=== PATIENT | male | born 1955 | race Caucasian/White ===

== ENCOUNTER 2016-05-04 22:38 | Emergency (ER) | payer BC ==
[2016-05-04] MEDS ORDERED: SODIUM CHLORIDE 0.9% 1,000 ML IV STA (23:03)
[2016-05-04] MEDS ORDERED: KETOROLAC 30 MG/ML 1 ML VIAL IVP STA ×2 (23:04→23:40)
--- NOTE | 2016-05-04 23:07 | ED ---
Chest Pain HPI - General Chief Complaint: Chest Pain Stated Complaint: Chest Pain Time Seen by Provider: 05/04/16 22:49 Source: patient, RN notes reviewed Mode of arrival: ambulatory Limitations: no limitations - History of Present Illness Initial Comments: This is a 60-year-old male with the onset yesterday of about 8 or 9/10 left- sided chest pain. He points to his left flank states he cut it comes around from front to back today at 9-10/10 constant he states it hurts he thought might be indigestion but does not feel like previous indigestion he's had. He has no prior history of heart disease or lung disease. He does not smoke. There is a family history of heart disease he states with his mother. He's had no nausea vomiting diarrhea. No cough or phlegm production no dysuria no hematuria. He does also state he has a family history of kidney stones with a brother. The pain does not get any better or worse with movement or deep breathing. MD Complaint: chest pain, other - Related Data Home Medications Medication Instructions Recorded Confirmed Omeprazole [PriLOSEC] 20 mg PO DAILY 11/30/15 05/04/16 Artificial Tears-Hypromellose 1 drops BOTH EYES DAILY PRN 05/04/16 05/04/16 [Artificial Tear Drops] Aspirin 325 mg PO DAILY 05/04/16 05/04/16 Multivitamins, Thera [Multivitamin] 1 tab PO DAILY 05/04/16 05/04/16 Suvorexant [Belsomra] 10 mg PO DAILY@1900 05/04/16 05/04/16 Previous Rx's Medication Instructions Recorded Dicyclomine HCl [Bentyl] 20 mg PO QID #10 tab 05/05/16 Hydrocodone/Acetaminophen [[place] 1 each PO Q6HR PRN #20 tab 05/05/16 5-325] Allergies Allergy/AdvReac Type Severity Reaction Status Date / Time amoxicillin Allergy Diarrhea, Verified 05/04/16 23:17 RECTAL BLEEDING Review of Systems ROS Statement: Those systems with pertinent positive or pertinent negative responses have been documented in the HPI. ROS Other: All systems not noted in ROS Statement are negative. EKG Findings - EKG Results: EKG: interpreted by TRICIA, sinus rhythm (Sinus bradycardia with a rate of 59 appear of 01 78 QRS duration 66 QT/QTC of 400/396 no acute changes are seen) Past Medical History Past Medical History: Cancer, GERD/Reflux, Hyperlipidemia Additional Past Medical History / Comment(s): PROSTATE CANCER, BLOOD IN STOOL History of Any Multi-Drug Resistant Organisms: None Reported Past Surgical History: Prostate Surgery, Tonsillectomy Additional Past Surgical History / Comment(s): BILATERAL CATARACT SURGERY, LEFT EYE SURGERY,LEFT ELBOW SIURGERY Past Anesthesia/Blood Transfusion Reactions: No Reported Reaction Past Psychological History: No Psychological Hx Reported Smoking Status: Never smoker Past Alcohol Use History: Occasional Additional Past Alcohol Use History / Comment(s): STARTED AT AGE AG 14 QUIT AT AGE 18 SMOKED 1/2 PPD Past Drug Use History: None Reported - Past Family History Mother Family Medical History: Cancer Additional Family Medical History / Comment(s): UTERINE CANCER General Exam - General Exam Comments Initial Comments: This is a well-developed well-nourished awake alert oriented 3 male Limitations: no limitations General appearance: alert, in no apparent distress Head exam: Present: atraumatic, normocephalic, normal inspection Eye exam: Present: normal appearance, PERRL, EOMI. Absent: scleral icterus, conjunctival injection, periorbital swelling ENT exam: Present: normal exam, mucous membranes moist Neck exam: Present: normal inspection. Absent: tenderness, meningismus, lymphadenopathy Respiratory exam: Present: normal lung sounds bilaterally. Absent: respiratory distress, wheezes, rales, rhonchi, stridor Cardiovascular Exam: Present: regular rate, normal rhythm, normal heart sounds. Absent: systolic murmur, diastolic murmur, rubs, gallop, clicks GI/Abdominal exam: Present: soft, normal bowel sounds. Absent: distended, tenderness, guarding, rebound, rigid Extremities exam: Present: normal inspection, full ROM, normal capillary refill. Absent: tenderness, pedal edema, joint swelling, calf tenderness Back exam: Present: normal inspection Neurological exam: Present: alert, oriented X3, CN II-XII intact Psychiatric exam: Present: normal affect, normal mood Skin exam: Present: warm, dry, intact, normal color. Absent: rash Course Vital Signs 05/04/16 05/04/16 05/05/16 22:40 23:46 00:22 Temperature 98.2 F Pulse Rate 62 61 57 L Respiratory 18 18 20 Rate Blood Pressure 176/79 160/88 160/88 O2 Sat by Pulse 97 98 96 Oximetry 05/05/16 02:29 Temperature 98 F Pulse Rate 60 Respiratory 18 Rate Blood Pressure 145/85 O2 Sat by Pulse 97 Oximetry Chest Pain MDM - MDM I did review the imaging studies and report no acute findings are seen. The presentation appears be consistent with spastic colon will be discharged on appropriate medication is a follow-up with his doctor return when necessary his abdomen currently soft and nontender. Disposition Clinical Impression: Spastic colon Disposition: HOME SELF-CARE Condition: Good Instructions: Irritable Bowel Syndrome (ED) Prescriptions: Dicyclomine HCl [Bentyl] 20 mg PO QID #10 tab Hydrocodone/Acetaminophen [[place] 5-325] 1 each PO Q6HR PRN #20 tab PRN Reason: Pain
[2016-05-04 23:20] LABS: Basophils % (A) 1 %; CH 29.7; CHCM 34.3; Eosinophils # (A) 0.2 k/uL (0-0.7); Eosinophils % (A) 3 %; HCT 45.4 % (39.0-53.0); HDW 2.55; Luc # (Auto) 0.16; Luc % (Auto) 3; Lymphocytes % (A) 38 %; MCH 28.7 pg (25.0-35.0); MCHC 33.1 g/dL (31.0-37.0); MCV 86.8 fL (80.0-100.0); Mean Platelet Volume 6.8; Monocytes # (A) 0.3 k/uL (0-1.0); Monocytes % (A) 6 %; Neutrophils # (A) 2.6 k/uL (1.3-7.7); Neutrophils % (A) 50 %; RBC 5.23 m/uL (4.30-5.90); RDW 13.1 % (11.5-15.5); WBC 5.3 k/uL (3.8-10.6)
[2016-05-04 23:32] LABS: ALT 37 U/L (21-72); AST 21 U/L (17-59); Alkaline Phosphatase 47 U/L (38-126); Amylase 60 U/L (30-110); Anion Gap 9 mmol/L; Blood Urea Nitrogen 22 mg/dL (9-20); Calcium 8.7 mg/dL (8.4-10.2); Carbon Dioxide 28 mmol/L (22-30); Chloride 104 mmol/L (98-107); Glucose 105 mg/dL (74-99); Magnesium 2.2 mg/dL (1.6-2.3); Non-African American GFR(MDRD) 56 (>60 ml/min/1.73 sqM); Potassium 4.1 mmol/L (3.5-5.1); Sodium 141 mmol/L (137-145); Total Bilirubin 0.7 mg/dL (0.2-1.3)
[2016-05-04 23:33] LABS: Creatine Kinase 65 U/L (55-170); Partial Thromboplastin Time 24.7 sec (22.0-30.0); Prothrombin Time 10.5 sec (9.0-12.0)
[2016-05-04 23:44] LABS: Appearance,Urine Clear (Clear); Bilirubin,Urine Negative (Negative); Glucose,Urine (UA) Negative (Negative); Ketones,Urine Negative (Negative); Leukocyte Esterase,Urine Negative (Negative); Nitrite,Urine Negative (Negative); Protein,Urine Negative (Negative); Specific Gravity,Urine 1.021 (1.001-1.035); UA Billing (MACRO vs. MICRO) CHEM; Urobilinogen,Urine <2.0 mg/dL (<2.0)
[2016-05-04 23:47] LABS: Creatine Kinase MB 0.6 ng/mL (0.0-2.4); Troponin I <0.012 ng/mL (0.000-0.034)
--- NOTE | 2016-05-05 00:04 | XR ---
EXAMINATION TYPE: XR chest 2V DATE OF EXAM: 05/04/2016 11:28 PM COMPARISON: None. HISTORY: Chest pain TECHNIQUE: Frontal and lateral views of the chest are obtained. FINDINGS: There is no focal air space opacity, pleural effusion, or pneumothorax seen. The cardiac silhouette size is within normal limits. The osseous structures are intact. IMPRESSION: No acute cardiopulmonary process.
[2016-05-05] MEDS ORDERED: ACETAMINOPHEN IV (For NPO) 1,000 MG in SALINE 1 100ML.BAG IVPB STA (00:16)
--- NOTE | 2016-05-05 01:57 | CT ---
EXAMINATION TYPE: CT abdomen pelvis wo con DATE OF EXAM: 05/05/2016 1:03 AM COMPARISON: 10/09/2013 HISTORY: left sided chest and flank pain, renal stone protocol CT DLP: 624.60 mGycm Automated exposure control for dose reduction was used. TECHNIQUE: Helical acquisition of images was performed from the lung bases through the pelvis. FINDINGS: LUNG BASES: Mild scarring and atelectasis is noted in both lung bases. LIVER/GB: No significant abnormality is appreciated. PANCREAS: No significant abnormality is seen. SPLEEN: No significant abnormality is seen. ADRENALS: No significant abnormality is seen. KIDNEYS: Benign-appearing cyst is noted in the right kidney. No hydronephrosis or obstructing stones are noted in the right kidney. Benign-appearing cyst is noted in the left kidney. No definite obstructing opaque stones are noted in the left kidney and left ureter. No hydronephrosis is noted on the left side. RETROPERITONEAL ADENOPATHY: None visualized REPRODUCTIVE ORGANS: No significant abnormality is seen URINARY BLADDER: No significant abnormality is seen. PELVIC ADENOPATHY: None visualized. OSSEOUS STRUCTURES: No significant abnormality is seen. BOWEL: Mild to moderate colonic diverticulosis is noted. Small hiatal hernia is noted. Visualized ap pendix area showed no significant inflammation. OTHER: IMPRESSION: 1. BILATERAL RENAL CYSTS. NO OBSTRUCTING STONES OR HYDRONEPHROSIS OR HYDROURETER IS NOTED BILATERALLY . 2. MILD TO MODERATE COLONIC DIVERTICULOSIS WITHOUT ACUTE DIVERTICULITIS. 3. VISUALIZED APPENDIX AREA SHOWED NO SIGNIFICANT INFLAMMATION. 4. SMALL HIATAL HERNIA.
[2016-05-05 02:30] VITALS: BP 145/85; PULSE 60; RESP 18; TEMP 98
== END 2016-05-05 02:54 | disposition home or self-care (01) ==
LOC: EC 22:38
DX: K58.9 Irritable bowel syndrome, unspecified (principal); R07.9 Chest pain, unspecified; K21.9 Gastro-esophageal reflux disease without esophagitis; E78.5 Hyperlipidemia, unspecified; Z87.891 Personal history of nicotine dependence; Z79.82 Long term (current) use of aspirin; Z85.46 Personal history of malignant neoplasm of prostate; Z79.899 Other long term (current) drug therapy; Z88.0 Allergy status to penicillin
CPT/HCPCS: 96375 ×2; 96365 ×2; 99285 ×2; 96361 ×2; 36415; 93005; 85379; 83880; 80053; 82150; 82550; 82553; 83690; 83735; 84484; 85025; 85610; 85730; 81003; 71020; 74176; J1885; J0131

== ENCOUNTER → 2017-03-23 | Outpatient (CLI) | payer BC ==
[2017-03-23 08:51] LABS: Appearance,Urine Clear (Clear); Bilirubin,Urine Negative (Negative); Blood,Urine Negative (Negative); Color,Urine Light Yellow; Glucose,Urine (UA) Negative (Negative); Ketones,Urine Negative (Negative); Leukocyte Esterase,Urine Negative (Negative); Nitrite,Urine Negative (Negative); PH, Urine 6.5 (5.0-8.0); Protein,Urine Negative (Negative); Specific Gravity,Urine 1.004 (1.001-1.035); Urobilinogen,Urine <2.0 mg/dL (<2.0)
[2017-03-23 08:52] LABS: HCT 46.6 % (39.0-53.0); HGB 15.5 gm/dL (13.0-17.5); MCH 29.6 pg (25.0-35.0); MCHC 33.4 g/dL (31.0-37.0); MCV 88.6 fL (80.0-100.0); Mean Platelet Volume 7.1; Platelet Count 204 k/uL (150-450); RBC 5.26 m/uL (4.30-5.90); RDW 12.5 % (11.5-15.5); WBC 5.7 k/uL (3.8-10.6)
[2017-03-23 09:37] LABS: Anion Gap 11 mmol/L; Blood Urea Nitrogen 17 mg/dL (9-20); Calcium 9.4 mg/dL (8.4-10.2); Carbon Dioxide 30 mmol/L (22-30); Chloride 101 mmol/L (98-107); Glucose 96 mg/dL (74-99); Potassium 4.4 mmol/L (3.5-5.1); Sodium 142 mmol/L (137-145)
== END | disposition home or self-care (01) ==
LOC: LABPAT 08:01
PROVIDERS: ATTEND Urology
DX: Z01.818 Encounter for other preprocedural examination (principal); N52.31 Erectile dysfunction following radical prostatectomy; R35.0 Frequency of micturition; R10.9 Unspecified abdominal pain
CPT/HCPCS: 36415; 80048; 81003; 85027; 87086

== ENCOUNTER → 2017-09-06 | Outpatient (CLI) | payer BC | END | disposition home or self-care (01) | LOC: LABWHC1 14:08 | PROVIDERS: ATTEND Family Medicine | DX: I83.813 Varicose veins of bilateral lower extremities with pain (principal); I82.402 Acute embolism and thrombosis of unspecified deep veins of left lower extremity; R79.1 Abnormal coagulation profile | CPT/HCPCS: 36415; 85379 ==

== ENCOUNTER → 2018-10-29 | Outpatient (CLI) | payer BC ==
--- NOTE | 2018-10-29 10:57 | MR ---
EXAMINATION TYPE: MR knee RT wo con DATE OF EXAM: 10/29/2018 COMPARISON: Outside x-ray dated 10/17/2018 HISTORY: Pain in right knee TECHNIQUE: Multiplanar, multisequence imaging of the right knee is performed without IV contrast. FINDINGS: No marrow edema or contusion. No evidence of acute fracture. Trace amount of fluid in the suprapatellar bursa. There is mild inflammation within the suprapatellar bursa correlate for fat pad impingement syndrome. Quadriceps and patellar tendons intact. Anterior cruciate and posterior cruciate ligaments have a normal appearance. Medial collateral and la teral collateral ligaments have a normal appearance. There is a focal area of chondral defect involving the lateral femoral articular cartilage measuring 4.6 x 11 mm. No definite free fragment. There is intrasubstance signal involving the posterior horn of the medial and lateral meniscus. This is suggestive of myxoid degeneration. No sizable joint effusion. No erosive changes. There is a 7 x 4 x 10 mm popliteal fossa cyst. IMPRESSION: 1. There is a 4.6 x 11 mm focal area of grade III chondromalacia involving the lateral femoral articu lar surface. 2. Intrasubstance signal within the posterior horn of the medial and lateral meniscus is most typical of myxoid degeneration. Subtle linear tear not excluded. 3. Inflammation within the suprapatellar bursa. Correlate for fat pad impingement syndrome
== END | disposition home or self-care (01) ==
LOC: RADMRIMAIN 09:01
PROVIDERS: ATTEND Orthopaedic Surgery
DX: M94.261 Chondromalacia, right knee (principal); M23.321 Other meniscus derangements, posterior horn of medial meniscus, right knee; M23.351 Other meniscus derangements, posterior horn of lateral meniscus, right knee

== ENCOUNTER → 2021-05-17 | Outpatient (CLI) | payer BC, MEDICARE ==
--- NOTE | 2021-05-17 09:30 | P.CON ---
Consult Note - . Consult date: 05/17/21 Assessment/Plan:: HISTORY OF PRESENT ILLNESS: 65 -year-old male as a referral from Dr. Martínez and presents today with lower back pain due to disc bulges, spinal stenosis, facet arthropathy and neuroforaminal stenoses of the left L3, right L4 and right L5 on and off for the last 35 years. Patient states back pain is 4 out of 10 intensity and escalates as high as 10 out of 10 intensity by evening. It is provoked with bending and lifting. Pain is relieved with [place] [address] Squires, ice, heat, physical therapy on and off for several years, daily home exercise regimen, massage and rest. PMH: Hypertension, GERD, OA PSH: Prostatectomy status post prostate cancer, cataract surgery, vitrectomy, tonsillectomy SH: History of tobacco use, occasional EtOH use, no illicit drug use. Read. FH: Diabetes mellitus type 2 All: Amoxacillin Meds: See list REVIEW OF ORGAN SYSTEMS: CONSTITUTIONAL: No fevers or chills. No recent weight loss. HEENT: No visual acuity loss, eye pain, difficulties with hearing. No nosebleeds. No difficulty swallowing. RESPIRATORY: Denies any troubles with breathing or dyspnea on exertion. CARDIOVASCULAR: Denies any chest pain, palpitations, or recent heart attacks. GASTROINTESTINAL: Denies fatty food intolerance. Has change in bowel habits and gas bloat. GENITOURINARY: Denies any blood in urine. Has increased urinary frequency. NEUROLOGICAL: + numbness and tingling along the distal extremities. No seizure disorders or headaches. MUSCULOSKELETAL: + back pain SKIN: No skin cancer. No rash. PSYCHIATRIC: Denies current depression or suicidal thoughts. ENDOCRINE: Denies current thyroid disorders. Denies any blood sugar glucose intolerance. HEME/LYMPHATIC: Denies any lumps and bumps around the neck. History of deep venous thrombosis. ALLERGY/IMMUNOLOGY: No immunoglobulin therapy. No immune deficiencies. BREAST: Denies current breast lumps, pain or nipple discharge. Physical Examinations : Constitutional : Cooperative , not in acute distress . HEENT: Neck supple. No Lymphadenopathy. Normal thyroid size . Eyes no ptosis , no icterus, no photophobia . Hearing intact. Normal oropharynx. No Thrush. Respiratory : Chest clear to auscultations bilaterally. No wheezing. No rhonchi. Cardiovascular : Regular rate and rhythm , S1 / S2. No S3 . No S4. Gastrointestinal : Abdomen soft. No tenderness. Bowel sounds x 4. No organomegaly . Genitourinary : Deferred. Neurologic : Cranial nerve II to XII intact. No focal neurological deficits. Psychiatric : alert & oriented x 3. Matching mood & appropriate affect. Judgment & insight intact. Lymphatic No Lymphadenopathy. Musculoskeletal : Cervical Spine Motor strength in the deltoid and biceps: Normal right side. Normal Left side Motor strength biceps and the wrist extensors: Normal right side . Normal left side Motor strength in the triceps muscle: Normal right side. Normal left side Deep tendon reflexes: Normal at the biceps. Normal at Brachioradialis. Normal at triceps Cervical facet loading test: positive bilaterally Spurling test: positive bilaterally Neck distraction test: positive bilaterally Gurmeet sign: positive bilaterally Lumbar spine Motor strength lower extremities ,thigh and legs 5/5 Right side , 5/5 Left side Deep tendon reflexes : Normal Knee Jerk. Normal Ankle Jerk Vertebral body tenderness over Lumbar facet Loading Test: positive Right / positive Left over L4-L5 and L5-S1 accompanying muscle spasms Range of motion of the lumbar spine Flexion 30 degrees, extension 10 degrees Straight Leg Raise test: Left/ Right positive at degree Loyda test: positive right / positive left. Severe tenderness over the Sacroiliac joint on the Right / Left sides Gaenslen test: positive bilaterally Seated flexion test: positive bilaterally. Imaging: MRI of the lumbar spine from 04/05/21 reviewed Assessment/ Plan : Recommendation of bilateral RFA of the L3 to L5. Patient admits to a series of facet blocks of the medial branches in the past at [facility]. Documentation received. Risks, benefits of procedure discussed and patient verbalized understanding. Denies aspirin or anti- coagulant use. Denies history of diabetes. All questions answered. I have spent greater than 50 minutes on patient care today. Dr Butler was available by phone for the evaluation of this patient. The time was used to review the medical records including relevant urine studies and Prescription hi story (MAPs), review of the available imaging, evaluation and examination of the patient, coordination of care with the medical staff and if applicable referring physicians, as well as creation of the medical record PQRS Measure Charge Sheet PQRS Narrative: Smoking Status Former smoker Pain Intensity [Lower Back] 5 Scale Used Numeric (1 - 10) Hx Alcohol Use (MH) Yes: Very rare Home Medications: Ambulatory Orders No Known Home Medications 03/17/17
[2021-05-17 10:10] VITALS: BP 151/82; PULSE 81; RESP 18; TEMP 98.1
== END ==
LOC: PNWHC3 08:20
PROVIDERS: ATTEND Physician Assistant Medical
DX: M47.816 Spondylosis without myelopathy or radiculopathy, lumbar region (principal); I10 Essential (primary) hypertension; M19.90 Unspecified osteoarthritis, unspecified site; Z87.891 Personal history of nicotine dependence; Z88.1 Allergy status to other antibiotic agents
CPT/HCPCS: 99211

== ENCOUNTER → 2021-07-05 | Outpatient (CLI) | payer MEDICARE ==
[2021-07-05 08:18] VITALS: BP 134/72; PULSE 73; RESP 18; TEMP 98.2
--- NOTE | 2021-07-05 08:24 | P.PN ---
Subjective Progress Note Date: 07/05/21 Principal diagnosis: A 65 yr old male with a history of severe and chronic low back pain secondary to lumbar degenerative disc diseases and lumbar spondylosis with facet arthropathy presents today for evaluation status post bilateral RFA of L4-L5, L5-S1. Patient states he experienced 60% pain relief status post procedure. States the last time he had lumbar RFA, he experienced pain relief for 3 years. Pain level is currently at 3 out of 10 in intensity, constant, achy in the lower aspects of his lumbar spine with radiation of pain down the left lower extremity. Pain escalates as high as 5 out of 10 in intensity with standing or walking for periods of 20 minutes or more. Pain is alleviated with lidocaine patches which provided no relief, injections, heat, physical therapy in the past, chiropractic treatments in the past but was told by his chiropractor not to continue, home-based stretching regimen and rest. Patient does not take medications due to stage III CKD. Interventional pain procedures completed include BL L4-L5, L5-S1 x 3. Patient is currently on DENIES Patient denies any side effects of the medication(s), denies excessive drowsiness or sleepiness, denies suicidal ideation and reports that the current pain medication is helping to control the pain and improve activities of daily living. Patient denies any motor or sensory deficits. Patient denies any fever or night sweats, denies any change in the bowel movements or urination. Physical Examination: -Constitutional: Cooperative. Not in acute distress . -HEENT: Neck is supple. No lymphadenopathy. No thyromegaly. Normal thyroid size. Eyes: No ptosis , no icterus, no photophobia. ENT: No auditory deficits. Normal oropharynx. No Thrush. - Respiratory: Chest clear to auscultations bilaterally. No wheezing. No rhonchi. - Cardiovascular: Regular rate and rhythm. S1 / S2 , no S3 , no S4. - Gastrointestinal: Abdomen soft no tenderness. Bowel sounds positive in all four quadrants. No organomegaly. - Genitourinary: Deferred. - Neurologic: Cranial nerve II to XII intact. No focal neurological deficits. - Psychatric: Alert & oriented x 3. Matching mood & appropriate affect. Judgment and insight intact. - Lymphatic: No Lymphadenopathy. - Musculoskeletal: Cervical spine: Muscle bulk/ tone/ strength in the bilateral upper extremities normal. Facet loading test cervical area positive. Lumbar spine: Motor bulk/ tone/ strength lower extremities , thigh and legs : 5/5 Deep tendon reflexes : Normal Knee Jerk. Normal Ankle Jerk . Vertebral body tenderness to palpation over L4 Lumbar Facet Loading Test positive Straight Leg Raise: positive at 30 degrees right side/ left side Gaenslen's Test positive Sacral spine : Severe tenderness over the Sacroiliac joint: right side / left side Range of motion: Flexion of the lumbar spine <60 degrees Range of motion: Extension of the lumbar spine <20 degrees Gaenslen's Test positive Loyda test: positive right side / left side Assessment and plan: Chronic low back pain secondary to lumbar degenerative disc disease , lumbar spondylosis with facet arthropathy without myelopathy Recommendation of PT 3x/ week x 3-4 weeks, integrated with massage. Pt obtained sufficient pain relief s/p procedure and may return to our clinic on an as-needed basis. All patient questions answered MAPS reviewed and it was appropriate. I have spent 31 minutes on patient care today. Dr Butler was available by phone for the evaluation of this patient. The time was used to review the medical records including relevant urine studies and Prescription history (MAPs), review of the available imaging, evaluation and examination of the patient, coordination of care with the medical staff and if applicable referring physicians, as well as creation of the medical record Objective - Vital Signs Vital signs: Vital Signs Temp 98.2 F 07/05/21 08:11 Pulse 73 07/05/21 08:11 Resp 18 07/05/21 08:11 BP 134/72 07/05/21 08:11 Pulse Ox 96 07/05/21 08:11 Intake & Output 07/04/21 07/05/21 07/05/21 18:59 06:59 18:59 Weight 88.451 kg PQRS Measure Charge Sheet Mode of Arrival: Ambulatory - Pain Location Lower Back Non-Pharmacological Interventions: Chiropractic Treatment, Heat, Home Exercise, Physical Therapy, Stretching Pharmacological Interventions: Block, Topical Medication PQRS Narrative: Smoking Status Former smoker Blood Pressure 134/72 Pain Intensity [Lower Back] 3 Scale Used Numeric (1 - 10) Hx Alcohol Use (MH) Yes: Very rare Home Medications: Ambulatory Orders Multivitamins, Thera [Multivitamin (formulary)] 1 tab PO DAILY 06/16/21
== END ==
LOC: PNWHC3 07:54
PROVIDERS: ATTEND Specialist
DX: M47.816 Spondylosis without myelopathy or radiculopathy, lumbar region (principal); M51.36 Other intervertebral disc degeneration, lumbar region; N18.30 Chronic kidney disease, stage 3 unspecified; G89.29 Other chronic pain; Z88.1 Allergy status to other antibiotic agents; Z87.891 Personal history of nicotine dependence
CPT/HCPCS: 99211

== ENCOUNTER → 2022-01-28 | Outpatient (CLI) | payer MEDICARE ==
--- NOTE | 2022-01-28 13:09 | FL ---
EXAMINATION TYPE: FL barium swallow w video DATE OF EXAM: 01/28/2022 COMPARISON: NONE HISTORY: Wakes up choking TECHNIQUE: Fluoroscopy. FINDINGS: Fluoroscopic guidance was provided for the procedure performed in conjunction with the hospital [facility] pathology department. Please see complete report forthcoming from the Speech Pathology departmen t. Various consistencies from thin liquid to solids were administered. Fluoroscopy time 39 seconds. Number of images: 0. No aspiration or penetration was evident. No significant pooling was observed in the vallecula. There was normal propulsion of the bolus. Minimal posterior impression on the proximal cervical esophagus anterior to the fusion was present IMPRESSION: 1. Normal modified barium swallow
== END | disposition home or self-care (01) ==
LOC: RADFLMAIN 10:49
PROVIDERS: ATTEND Family Medicine
DX: R13.10 Dysphagia, unspecified (principal); R09.89 Other specified symptoms and signs involving the circulatory and respiratory systems
CPT/HCPCS: 74230

== ENCOUNTER → 2022-02-09 | Outpatient (CLI) | payer MEDICARE ==
--- NOTE | 2022-02-09 11:51 | FL ---
ESOPHOGRAM. HISTORY: Dysphagia Esophagram was performed per the air contrast technique. The patient swallowed barium and effervesce nt crystals without difficulty or delay. Esophageal peristalsis and motility appear to be within normal limits. There is no evidence for filling defect, mass or diverticulum. Small reducible hiatal hernia is noted. Subsequently single contrast cervical esophagram was performed which fails demonstrate evidence for a spiration penetration or mass. IMPRESSION: Small reducible hiatal hernia is noted.
== END | disposition home or self-care (01) ==
LOC: RADUSWWP 09:40
PROVIDERS: ATTEND Family Medicine
DX: K44.9 Diaphragmatic hernia without obstruction or gangrene (principal); R13.10 Dysphagia, unspecified
CPT/HCPCS: 74220

== ENCOUNTER → 2022-09-02 | Outpatient (CLI) | payer MEDICARE ==
--- NOTE | 2022-09-02 10:06 | US ---
EXAMINATION TYPE: US venous doppler duplex LE LT DATE OF EXAM: 09/02/2022 9:51 AM COMPARISON: NONE CLINICAL INDICATION: Male, 67 years old with history of I80.9 PHLEBITIS AND THROMBOPHLEBITIS OF UNSPE CIFIED; Hip replacement x 10 days ago. On baby aspirin. Foot bruising. Patient states swelling has gone down a lot. SIDE PERFORMED: Left TECHNIQUE: The lower extremity deep venous system is examined utilizing real time linear array sonog marisela with graded compression, doppler sonography and color-flow sonography. VESSELS IMAGED: Common Femoral Vein Deep Femoral Vein Greater Saphenous Vein * Femoral Vein Popliteal Vein Small Saphenous Vein * Proximal Calf Veins (* superficial vessels) Left Leg: Negative for DVT IMPRESSION: 1. Left lower chart ultrasound negative for deep venous thrombosis.
== END | disposition home or self-care (01) ==
LOC: RADUSWWP 09:21
PROVIDERS: ATTEND Orthopaedic Surgery
DX: I80.9 Phlebitis and thrombophlebitis of unspecified site (principal)

== ENCOUNTER → 2022-09-27 | Outpatient (CLI) | payer MEDICARE ==
--- NOTE | 2022-09-27 14:57 | NM ---
EXAMINATION TYPE: NM bone scan whole body DATE OF EXAM: 09/27/2022 2:16 PM CLINICAL INDICATION:Male, 67 years old with history of M16.12 UNILATERAL PRIMARY OSTEOARTHRITIS, LEFT HIP; COMPARISON: 02/24/2021 lumbar spine radiograph TECHNIQUE: Intravenous administration 23.4 mCi Tc 99m MDP followed by multiple scintigraphic images o f the appendicular and axial skeleton. Small [id number] planar chest abdomen pelvis views were als o obtained Images acquired 3 hours post injection. FINDINGS: No abnormal uptake is identified within the appendicular or axial skeleton to suggest metastatic dise ase. There is increased uptake within the left hip around the acetabulum and proximal femur. There is rela tively slight sparing of the left femoral neck. Uptake in the intertrochanteric region extending into the diaphysis is present. Small focus of uptake within the right knee also present. Additional degen eration uptake including bilateral shoulder, sternoclavicular, and sacroiliac joints consistent with degenerative changes. No other photopenic areas or areas of increased activity are identified. Physiologic radiotracer activity is demonstrated in the kidneys and bladder. IMPRESSION: 1. Abnormal uptake within the left proximal femur and left acetabulum. Findings suggestive of osteoa rthrosis consider further evaluation with left hip plain film and at that time consideration for MRI. 2. Nothing to suggest metastatic disease.
== END | disposition home or self-care (01) ==
LOC: RADNMMAIN 10:02
PROVIDERS: ATTEND Family Medicine
DX: M16.12 Unilateral primary osteoarthritis, left hip (principal); R93.7 Abnormal findings on diagnostic imaging of other parts of musculoskeletal system
CPT/HCPCS: 78306; A9503

== ENCOUNTER → 2024-01-08 | Outpatient (CLI) | payer MEDICARE ==
[2024-01-08 08:24] VITALS: BP 147/79; PULSE 69; RESP 16
--- NOTE | 2024-01-08 09:33 | XR ---
EXAMINATION TYPE: XR lumbar spine 3V DATE OF EXAM: 01/08/2024 Comparison: None Clinical History: 68-year-old male M54.16 radiculopathy Findings: 5 lumbar type vertebral bodies. Bulky anterior endplate spondylosis, bridging at L4-L5 and partially bridging T12-L1, L1-L2, L2-L3. Mild multilevel degenerative disc disease. Facet arthropathy mid to lo wer lumbar spine. Vertebral body heights are preserved and alignment is maintained. Partially visuali zed left hip arthroplasty. Impression: 1. Mild multilevel degenerative disc disease but with bulky anterior endplate spondylosis, bridging o r partially bridging at some levels. 2. Hypertrophic facet arthropathy mid to lower lumbar spine. 3. No vertebral compression collapse or malalignment. [facility], , 01/08/2024 9:30 AM
--- NOTE | 2024-01-08 10:24 | P.PAINPG ---
PQRS Measure Charge Sheet Comment: A 68 yr old male with a history of severe and chronic LBP secondary to radiculopathy, spondylosis and facet arthropathy without myelopathy presents today for evaluation. Pt underwent a BL RFA L4-L5/ L5-S1 in Jun 2021 and experienced 90% pain relief x 2.5 yrs s/p procedure. Pain level is currently at 7 /10 in intensity, constant, predominantly axial, sharp in the lower aspects of his lumbar spine without radiation of pain. Pain is exacerbated with standing or walking for periods > 20 minutes or PT which has provoked pain. Pain is alleviated with physician guided home stretching program daily since Jun 2021, medications, topical , injections, heat, repositioning and rest. Interventional pain procedures completed include BL RFA L4-L5 (Jun 2021), L5-S1 x 3. Patient is currently on Lidoderm Patient denies any side effects of the medication(s), denies excessive drowsiness or sleepiness, denies suicidal ideation and reports that the current pain medication is helping to control the pain and improve activities of daily living. Patient denies any motor or sensory deficits. Patient denies any fever or night sweats, denies any change in the bowel movements or urination. Physical Examination: -Constitutional: Cooperative. Not in acute distress . -HEENT: Neck is supple. No lymphadenopathy. No thyromegaly. Normal thyroid size. Eyes: No ptosis , no icterus, no photophobia. ENT: No auditory deficits. Normal oropharynx. No Thrush. - Respiratory: Chest clear to auscultations bilaterally. No wheezing. No rhonchi. - Cardiovascular: Regular rate and rhythm. S1 / S2 , no S3 , no S4. - Gastrointestinal: Abdomen soft no tenderness. Bowel sounds positive in all four quadrants. No organomegaly. - Genitourinary: Deferred. - Neurologic: Cranial nerve II to XII intact. No focal neurological deficits. - Psychatric: Alert & oriented x 3. Matching mood & appropriate affect. Judgment and insight intact. - Lymphatic: No Lymphadenopathy. - Musculoskeletal: Cervical spine: Muscle bulk/ tone/ strength in the bilateral upper extremities n ormal. Facet loading test cervical area positive. Lumbar spine: Motor bulk/ tone/ strength lower extremities , thigh and legs : 5/5 Deep tendon reflexes : Normal Knee Jerk. Normal Ankle Jerk . Vertebral body tenderness to palpation over L4 Lumbar Facet Loading Test positive L4-L5, L5-S1 Straight Leg Raise: positive at 30 degrees right side/ left side Gaenslen's Test positive Sacral spine : Severe tenderness over the Sacroiliac joint: right side / left side Range of motion: Flexion of the lumbar spine <60 degrees Range of motion: Extension of the lumbar spine <20 degrees Gaenslen's Test positive Loyda test: positive right side / left side Assessment and plan: Chronic low back pain secondary to radiculopathy, lumbar spondylosis with facet arthropathy without myelopathy Recommendation of lumbar x ray M54.16 . All questions answered. I have spent 31 minutes on patient care today. Dr Butler was available by phone for the evaluation of this patient. The time was used to review the medical records including relevant urine studies and Prescription history (MAPs), review of the available imaging, evaluation and examination of the patient, coordination of care with the medical staff and if applicable referring physicians, as well as creation of the medical record PQRS Narrative: Smoking Status Former smoker Hx Alcohol Use (MH) Yes: Very rare Home Medications: Ambulatory Orders Multivitamins, Thera [Multivitamin (formulary)] 1 tab PO DAILY 06/16/21 Controlled Substance Measures - Controlled Substance Measures Is patient prescribed a controlled substance at discharge?: No
== END ==
LOC: PNWHC3 07:30
PROVIDERS: ATTEND Specialist
DX: M54.16 Radiculopathy, lumbar region
CPT/HCPCS: 72100; 99211

== ENCOUNTER → 2024-01-11 | Outpatient (CLI) | payer MEDICARE ==
--- NOTE | 2024-01-12 15:29 | MR ---
EXAMINATION TYPE: MR lumbar spine wo con DATE OF EXAM: 01/11/2024 COMPARISON: Lumbar spine radiograph 01/08/2024, CT abdomen pelvis 05/05/2016, nuclear medicine bone sc an 09/27/2022 HISTORY: Low back pain TECHNIQUE: Multiplanar, multisequence images of the lumbar spine were acquired without IV contrast. FINDINGS: The lumbar vertebral bodies do have preserved heights and alignment. Diffuse heterogenous bone marrow signal. Multilevel disc desiccation is present of the lower lumbar spine. Anterior osteop hytosis of the lower lumbar spine. The conus medullaris and the distal spinal cord do appear unremark able with regards to their signal intensity and morphology. Postsurgical changes from left total hip arthroplasty with blooming artifact on the STIR imaging. L1-L2: No significant disc pathology is identified. The spinal canal and neural foramen are patent. L2-L3: No significant disc pathology is identified. The spinal canal and neural foramen are patent. L3-L4: Broad-based disc bulge is identified with associated enlargement of the facet joints. The spi nal canal remains patent. Neural canals are minimally narrowed bilaterally. L4-L5: Broad-based disc bulge is identified with associated enlargement of the facet joints. The spi nal canal remains patent. Neural canals are mildly narrowed bilaterally. L5-S1: The intervertebral disc appears round on its contour posteriorly without significant mass eff ect upon the thecal sac. Facet joints are enlarged. Neural canals do remain patent. Other significant findings: Partial visualization of known left exophytic 2.9 cm left renal cyst. IMPRESSION: 1. No definitive evidence for disc herniation or significant spinal canal stenosis. 2. Mild multilevel disc degeneration with associated osteoarthritic changes as described above. [facility], , 01/12/2024 3:27 PM
== END | disposition home or self-care (01) ==
LOC: RADMRIMAIN 20:45
PROVIDERS: ATTEND Specialist
CPT/HCPCS: 72148

== ENCOUNTER → 2024-01-24 | Outpatient (CLI) | payer MEDICARE ==
[2024-01-24 08:32] VITALS: BP 139/75; PULSE 71; RESP 16
--- NOTE | 2024-01-24 15:12 | P.PAINPG ---
PQRS Measure Charge Sheet Comment: A 68 yr old male with a history of severe and chronic LBP > 1 yr secondary to L3-L4/ L4-L5 radiculopathy, spondylosis and facet arthropathy without myelopathy presents today for evaluation. Pt underwent a BL RFA L4-L5/ L5-S1 in Jun 2021 and experienced 90% pain relief x 2.5 yrs s/p procedure. Pain level is currently at 7 /10 in intensity, constant, predominantly axial, sharp in the lower aspects of his lumbar spine without radiation of pain. Pain is exacerbated with standing or walking for periods > 20 minutes or PT which has provoked pain. Pain is alleviated with physician guided home stretching program daily since Jun 2021, medications, topical , injections, heat, repositioning and rest. Interventional pain procedures completed include BL RFA L4-L5 (Jun 2021), WILY L5-S1 x3 Patient is currently on Lidoderm Patient denies any side effects of the medication(s), denies excessive drowsiness or sleepiness, denies suicidal ideation and reports that the current pain medication is helping to control the pain and improve activities of daily living. Patient denies any motor or sensory deficits. Patient denies any fever or night sweats, denies any change in the bowel movements or urination. Physical Examination: -Constitutional: Cooperative. Not in acute distress . -HEENT: Neck is supple. No lymphadenopathy. No thyromegaly. Normal thyroid size. Eyes: No ptosis , no icterus, no photophobia. ENT: No auditory deficits. Normal oropharynx. No Thrush. - Respiratory: Chest clear to auscultations bilaterally. No wheezing. No rhonchi. - Cardiovascular: Regular rate and rhythm. S1 / S2 , no S3 , no S4. - Gastrointestinal: Abdomen soft no tenderness. Bowel sounds positive in all four quadrants. No organomegaly. - Genitourinary: Deferred. - Neurologic: Cranial nerve II to XII intact. No focal neurological deficits. - Psychatric: Alert & oriented x 3. Matching mood & appropriate affect. Judgment and insight intact. - Lymphatic: No Lymphadenopathy. - Musculoskeletal: Cervical spine: Muscle bulk/ tone/ strength in the bilateral upper extremities normal. Facet loading test cervical area positive. Lumbar spine: Motor bulk/ tone/ strength lower extremities , thigh and legs : 5/5 Deep tendon reflexes : Normal Knee Jerk. Normal Ankle Jerk . Vertebral body tenderness to palpation over L4 Lumbar Facet Loading Test positive L4-L5, L5-S1 Straight Leg Raise: positive at 30 degrees right side/ left side Gaenslen's Test positive Sacral spine : Severe tenderness over the Sacroiliac joint: right side / left side Range of motion: Flexion of the lumbar spine <60 degrees Range of motion: Extension of the lumbar spine <20 degrees Gaenslen's Test positive Loyda test: positive right side / left side Imaging: MRI non contrast lumbar spine from 01/11/24 reviewed Assessment and plan: Chronic LBP secondary to radiculopathy, spondylosis and facet arthropathy without myelopathy Recommendation of BL RFA L4-L5/ L5-S1. Pt exhibited optimal pain relief w prior BL RFA procedure. Risks, benefits of procedure discussed and pt verbalized understanding. Protocol for discontinuation/ continuation of medica tions wendy procedure discussed. Minimal anesthesia including Fentanyl and Versed if clinically indicated. All questions answered. I have spent 31 minutes on patient care today. Dr Butler was available by phone for the evaluation of this patient. The time was used to review the medical records including relevant urine studies and Prescription history (MAPs), review of the available imaging, evaluation and examination of the patient, coordination of care with the medical staff and if applicable referring physicians, as well as creation of the medical record PQRS Narrative: Smoking Status Former smoker Hx Alcohol Use (MH) Yes: Very rare Home Medications: Ambulatory Orders Multivitamins, Thera [Multivitamin (formulary)] 1 tab PO DAILY 06/16/21 Controlled Substance Measures - Controlled Substance Measures Is patient prescribed a controlled substance at discharge?: No
== END ==
LOC: PNWHC3 08:03
PROVIDERS: ATTEND Specialist
DX: M47.26 Other spondylosis with radiculopathy, lumbar region (principal); Z87.891 Personal history of nicotine dependence; Z88.0 Allergy status to penicillin
CPT/HCPCS: 99211

== ENCOUNTER 2024-02-09 09:35 | Day surgery (SDC) | payer MEDICARE ==
[2024-02-08 10:09] VITALS: BMI 25.7
[2024-02-09] MEDS: LACTATED RINGERS 1,000 ML BAG IV STA (10:09)
[2024-02-09] MEDS: IV FLUID CONTINUATION 1,000 ML IV ONE (10:09)
[2024-02-09 10:14] VITALS: TEMP 97.1
[2024-02-09] MEDS: MIDAZOLAM 2 MG/2 ML VIAL IV ONE (10:50)
[2024-02-09] MEDS ORDERED: MIDAZOLAM 2 MG/2 ML VIAL ONE (11:29)
[2024-02-09] MEDS ORDERED: ROPIVACAINE 5MG/ML 20ML VIAL ONE (11:29)
[2024-02-09] MEDS ORDERED: fentaNYL (PF) 50 MCG/ML 2 ML AMP ONE (11:29)
--- NOTE | 2024-02-09 12:10 | P.PCN ---
Description of Procedure: Preprocedure diagnosis. 1. Lumbar spondylosis with facet joint arthropathy without myelopathy. 2. Lumbar degenerative disc disease. Procedure diagnosis. 1. Lumbar spondylosis with facet joint arthropathy without myelopathy. Space 2. Lumbar degenerative disc disease. Procedure.Bilateral radiofrequency thermocoagulation L3, L4 and L5 medial branch, with fluoroscopic guidance (fluoroscopy images are available in the radiology department) (to Denervate the facet joint at bilateral L4- 5 and L5-S1 levels) Anesthesia. Moderate sedation with intravenous Versed 2 mg and fentanyl 150 g and local infiltration with Lidocaine. Continuous pulse OX,BP,EKG and verbal communication was maintained with patient. Time. EBL minimal. Procedure indication. The patient with low back pain secondary to lumbar facet arthropathy who he had more than 50% relief of her pain with previous diagnostic lumbar medial branch block with local anesthetics.The patient was seen and identified in the preoperative area. Risks: Benefits, complications, including but not limited to risk of infection, bleeding, ALLERGIC reaction to the medica tions and no complete pain relief and alternatives were discussed with the patient, the patient admitted to proceed with the procedure and signed the consent. Procedure description/technique. Patient was taken to the OR and timeout was completed. The patient was placed in prone position on the procedure table. The lumbar area was prepped and draped in the usual sterile fashion. After injecting 5 ml of 1% Lidocaine subcutaneously,using AP and then oblique, lateral view of fluoroscopy, 18-gauge 100 mm radiofrequency cannula with a 10 mm active tip was advanced and guided by fluoroscopy at the junction of supirior articular process with RIGHT ala of the sacrum, transverse process of L4&L5. Each site then underwent positive sensory testing with 50 Hz and 0-1 V and negative motor testing at 2.5 Hz and 0-3 V with local stimulation but no radicular symptoms down the leg. Thereafter each sites underwent radiofrequency thermocoagulation at 80C for 90 seconds after injecting 1 mL of preservative- free 0.5% ropivacaine. Repeat radiofrequency ablation was done at each points after rotating the needle 180 with same setting. This same procedure was repeated twice on the LEFT side at the junction of superior articular process with ala of sacrum,transverse process of L4, L5 with the same settings after positive sensory,negative motor stimulation and infiltration of 1.0 ml 5% Ropivacaine at each site . RF needles were taken out. At the end of the procedure the skin was cleansed and Band-Aids were applied. Disposition patient tolerated the procedure well. No complication. She was placed in supine position and transferred to the recovery area in stable condition for observation and was discharged home from recovery room after meeting discharge criteria. Discharge instructions given to the patient by the staff. The patient were examined prior to discharge the patient will schedule a follow-up in the clinic in 2-4 weeks.
[2024-02-09] MEDS: IV FLUID CONTINUATION 400 ML IV ONE (12:17)
[2024-02-09 12:21] VITALS: RESP 20
[2024-02-09] MEDS ORDERED: LACTATED RINGERS 1,000 ML IV SCH (12:21)
--- NOTE | 2024-02-09 12:27 | FL ---
EXAMINATION TYPE: FL guided pain mgmt statistic DATE OF EXAM: 02/09/2024 12:05 PM COMPARISON: Pre Operative Images if available both CT/MRI or plain film CLINICAL INDICATION: Male, 68 years old with history of Cecil Lumbar Rad Freq; TECHNIQUE: FL guided pain mgmt statistic, multiple fluoroscopic images provided for procedure. Total fluoroscopy time: 32 seconds Total submitted images to PACS: 0 DAP: 0.1637 mGym2 Gycm2 uGym2 cGycm2 or equivalent. FINDINGS: Fluoroscopic images during injection for pain management demonstrate multilevel degeneration changes throughout the spine. No evidence for fracture. No acute process identified. IMPRESSION: 1. No evidence for intraoperative complication. 2. Please see the operative/procedural note for further details. [facility], , 02/09/2024 12:25 PM
[2024-02-09 13:06] VITALS: BP 136/78; PULSE 50
== END 2024-02-09 13:07 | disposition home or self-care (01) ==
LOC: ORPAIN 09:35
PROVIDERS: ATTEND Pain Medicine Interventional Pain Medicine
DX: M47.816 Spondylosis without myelopathy or radiculopathy, lumbar region (principal); M51.369 Other intervertebral disc degeneration, lumbar region without mention of lumbar back pain or lower extremity pain; Z88.0 Allergy status to penicillin
CPT/HCPCS: 64635; 64636 ×2; 99152; 99153; J2250; J3010; J2795

== ENCOUNTER → 2024-07-23 | Day surgery (SDC) | payer MEDICARE ==
[~2024-07-23] MED LIST: LIDOCAINE 1% (10MG/ML) FOR IV START INTRADERMA PRN; LIDOCAINE 1% INJ 10MG/ML (20 ML MDV) ONE; PROPOFOL 10 MG/ML 20 ML VIAL IV ONE
[2024-07-23 07:09] VITALS: TEMP 97.3
[2024-07-23] MEDS: LACTATED RINGERS 1,000 ML IV SCH (07:16)
[2024-07-23] MEDS: IV FLUID CONTINUATION 1,000 ML IV ONE (07:17)
--- NOTE | 2024-07-23 07:34 | P.GSHP ---
History of Present Illness H&P Date: 07/23/24 Chief Complaint: GERD, GI bleed 6-year-old male here for upper and lower endoscopy. Patient with chronic but worsening reflux disease. Wakes up from night sometimes with reflux of food like material and has had possible aspiration events as well during sleep in the past. Patient with intermittent tarry black stools and bright red stools as well. Last upper and lower endoscopy 8 years ago. No family history of colon cancer. Past Medical History Past Medical History: Cancer, GERD/Reflux, Hyperlipidemia, Osteoarthritis (OA), Renal Disease Additional Past Medical History / Comment(s): Hx PROSTATE CANCER, Hemorrhoids, no meds for Hyperlipidemia. STAGE 3 CHRONIC KIDNEY DISEASE History of Any Multi-Drug Resistant Organisms: None Reported Past Surgical History: Joint Replacement, Orthopedic Surgery, Prostate Surgery, Tonsillectomy Additional Past Surgical History / Comment(s): BILATERAL CATARACT SURGERY, LEFT ELBOW SURGERY, right shoulder surgery, penile implant. LASIK SURGERY, PAIN CLINIC PROCEDURES, COLONOSCOPY, left hip replacement, prostate removed Past Anesthesia/Blood Transfusion Reactions: No Reported Reaction, Family History of Problems w/ Anesthesia Additional Past Anesthesia/Blood Transfusion Reaction / Comment(s): "Low tolerance to pain, high tolerance to anesthesia, high level of anxiety for medical procedures." PER PATIENT. "white coat syndrome". mom "got belligerent and a little combative" Smoking Status: Former smoker - Past Family History Mother Family Medical History: Cancer Additional Family Medical History / Comment(s): UTERINE CANCER. Medications and Allergies Home Medications Medication Instructions Recorded Confirmed Type Multivitamins, Thera [Multivitamin 1 tab PO DAILY 06/16/21 07/23/24 History (formulary)] Allergies Allergy/AdvReac Type Severity Reaction Status Date / Time amoxicillin Allergy Diarrhea, Verified 07/23/24 07:03 RECTAL BLEEDING Surgical - Exam Vital Signs Temp Pulse Resp BP Pulse Ox 97.3 F L 70 18 164/85 99 07/23/24 07:06 07/23/24 07:06 07/23/24 07:06 07/23/24 07:06 07/23/24 07:06 Physical exam: General: Well-developed, well-nourished HEENT: Normocephalic, sclerae nonicteric Abdomen: Nontender, nondistended Extremities: No edema Neuro: Alert and oriented Assessment and Plan (1) GI bleed Narrative/Plan: Will proceed with upper and lower endoscopy Current Visit: Yes Status: Acute Code(s): K92.2 - GASTROINTESTINAL HEMORRHAGE, UNSPECIFIED SNOMED Code(s): 33536039
--- NOTE | 2024-07-23 07:52 | P.PCN ---
Date of Procedure: 07/23/24 Procedure(s) Performed: PREOPERATIVE DIAGNOSIS: GERD, GI bleed POSTOPERATIVE DIAGNOSIS: Gastritis, hiatal hernia, distal esophagitis, diverticulosis, small internal hemorrhoids PROCEDURE: 1. EGD with biopsy 2. Colonoscopy ANESTHESIA: MAC SURGEON: Oseas Mark M.D. SPECIMENS: Antrum, body of stomach, distal esophagus ENDOSCOPIC PROCEDURE: The patient was on the endoscopy table in the left decubitus position. The Olympus gastroscope was inserted into the oropharynx and passed under direct visualization to the region of the third portion of the duodenum. From that point the scope was slowly withdrawn inspecting all surfaces carefully. There were no neoplastic inflammatory or polypoid lesions t hroughout the duodenum. The pylorus was widely patent. The stomach was carefully inspected. There was gastritis present. Most of the gastritis was present in the body of the stomach. Biopsy of both antrum and body of stomach took place. Retroflexion revealed a small hiatal hernia. The GE junction was present 2 cm above the diaphragmatic hiatus. There was a single linear erosion present measuring less than 1 cm in length. No stricture formation was seen. The remainder the esophagus appeared normal. The patient was kept on the endoscopy table in the left decubitus position. The Olympus colonoscope was inserted into the anus and passed under direct visualization to the base of the cecum. The appendiceal orifice was visualized. From that point the scope was slowly withdrawn inspecting all surfaces carefully. There were no neoplastic inflammatory or polypoid lesions throughout the cecum, ascending, transverse, descending, sigmoid and rectum. There was mild scattered diverticulosis noted throughout the colon. Inspection of the anal region revealed small internal hemorrhoids without any evidence of recent or active bleeding. Digital rectal examination was normal. The patient was taken to the recovery room in stable condition per anesthesia guidelines. RECOMMENDATIONS: Resume diet. Continue antiacid use. Patient with worsening nighttime reflux symptoms and inability to take PPI. Antireflux surgery options will be discussed further with the patient.
[2024-07-23 08:13] VITALS: BP 135/87; PULSE 64; RESP 14
== END ==
LOC: ORWHC2ENDO 06:38
PROVIDERS: ATTEND Surgery
DX: K57.30 Diverticulosis of large intestine without perforation or abscess without bleeding (principal); K64.8 Other hemorrhoids; K29.50 Unspecified chronic gastritis without bleeding; K21.00 Gastro-esophageal reflux disease with esophagitis, without bleeding; K22.10 Ulcer of esophagus without bleeding; K44.9 Diaphragmatic hernia without obstruction or gangrene; N18.30 Chronic kidney disease, stage 3 unspecified; E78.5 Hyperlipidemia, unspecified; F41.9 Anxiety disorder, unspecified; Z91.89 Other specified personal risk factors, not elsewhere classified; Z79.899 Other long term (current) drug therapy; Z87.891 Personal history of nicotine dependence; Z85.46 Personal history of malignant neoplasm of prostate; Z88.0 Allergy status to penicillin
CPT/HCPCS: 45378; 43239; J2003; J2704; 88305